=== PATIENT | female | born 2000 | race Caucasian/White ===

== ENCOUNTER 2020-11-24 17:22 | Emergency (ER) | payer OTHER ==
[~2020-11-24] VITALS: Ht 154.9 cm; Wt 74.8 kg
[~2020-11-24 17:22] MED LIST: AMPICILLIN500 MG PO; ANUSOL HC30 GM PO; BACTRIM DS 8001 TA1 PO; CLARITIN-D 12 H1 TAB PO; FLONASE ALLERG9.9 ML NAS; LATU20TA PO; MIRALAX POWDER17 G1 PO; MOTRIN400 MG PO; NKHM PO; PREDNISONE10 MG PO; PYRIDIUM200 M1 PO
[2020-11-24 17:30] VITALS: BP 143/81
[2020-11-24 18:11] LABS: BASO % 0.1 % (0.0-1.0); EOS # 0.1 10*3/uL (0.0-0.4); EOS % 0.6 % (1.0-4.0); HEMATOCRIT 38.9 % (37.0-47.0); LYMPH # 1.4 10*3/uL (1.3-4.4); LYMPH % 14.7 % (27.0-41.0); MEAN CELL VOLUME 84.9 fl (81.0-99.0); MEAN CORPUSCULAR HGB 27.7 pg (27.0-31.0); MEAN CORPUSCULAR HGB CONC 32.6 g/dl (33.0-37.0); MEAN PLATELET VOLUME 9.5 fl (9.6-12.3); MONO # 0.5 10*3/uL (0.1-1.0); NEUT # 7.6 10*3/uL (2.3-7.9); NEUT % 79.3 % (47.0-73.0); PLATELET COUNT AUTOMATED 347 10*3/uL (130-400); RED BLOOD COUNT 4.58 10*6/uL (4.10-5.10); WHITE BLOOD COUNT 9.6 10*3/uL (4.8-10.8)
[2020-11-24 18:29] LABS: ALBUMIN 3.6 gm/dl (3.1-4.5); ALKALINE PHOSPHATASE 86 U/L (45-117); BUN 10 mg/dl (7-24); CHLORIDE 107 mmol/L (98-107); CREATININE 0.66 mg/dL (0.55-1.02); POTASSIUM 3.5 mmol/L (3.5-5.1); SGOT/AST 17 IU/L (3-35); SGPT/ALT 50 U/L (12-78); SODIUM 136 mmol/L (136-145)
[2020-11-24 19:08] LABS: BILIRUBIN Negative (Negative); BLOOD 1+ (Negative); CLARITY Clear (Clear); COLOR Yellow (Yellow); GLUCOSE Negative (Negative); KETONE Negative (Negative); LEUKO ESTERASE 1+ (Negative); NITRITE Negative (Negative); SPECIFIC GRAVITY 1.015 (1.001-1.030)
== END 2020-11-24 19:34 | disposition home or self-care (01) ==
LOC: ED 17:22
PROVIDERS: Emergency Medicine
DX: O20.9 Hemorrhage in early pregnancy, unspecified (principal); Z3A.01 Less than 8 weeks gestation of pregnancy; Z88.0 Allergy status to penicillin; Z79.899 Other long term (current) drug therapy; Z79.2 Long term (current) use of antibiotics

== ENCOUNTER 2022-11-18 12:48 | Emergency (ER) | payer OTHER ==
[~2022-11-18] VITALS: Ht 154.9 cm; Wt 68.0 kg
[2022-11-18 13:04] VITALS: BP 119/72
[2022-11-18] MEDS ORDERED: MELOXICAM15 MG PO (14:27)
== END 2022-11-18 15:20 | disposition home or self-care (01) ==
LOC: ED 12:48
DX: S93.402A Sprain of unspecified ligament of left ankle, initial encounter (principal); Z88.0 Allergy status to penicillin; Z98.890 Other specified postprocedural states; X50.1XXA Overexertion from prolonged static or awkward postures, initial encounter; Y93.01 Activity, walking, marching and hiking; Y92.89 Other specified places as the place of occurrence of the external cause; Y99.8 Other external cause status

== ENCOUNTER 2023-05-04 15:06 | Emergency (ER) | payer MEDICAID ==
[~2023-05-04] VITALS: Ht 154.9 cm; Wt 54.4 kg
[~2023-05-04 15:06] MED LIST changes: +MELOXICAM15 MG PO
[2023-05-04 16:38] VITALS: BP 123/79
[2023-05-04 17:05] LABS: BASO % 0.2 % (0.0-1.0); EOS # 0.1 10*3/uL (0.0-0.4); EOS % 0.7 % (1.0-4.0); HEMATOCRIT 41.6 % (37.0-47.0); LYMPH # 1.3 10*3/uL (1.3-4.4); LYMPH % 16.1 % (27.0-41.0); MEAN CORPUSCULAR HGB 29.8 pg (27.0-31.0); MEAN CORPUSCULAR HGB CONC 32.7 g/dl (33.0-37.0); MEAN PLATELET VOLUME 9.5 fl (9.6-12.3); MONO # 0.4 10*3/uL (0.1-1.0); MONO % 5.3 % (3.0-9.0); NEUT # 6.3 10*3/uL (2.3-7.9); NEUT % 77.5 % (47.0-73.0); PLATELET COUNT AUTOMATED 267 10*3/uL (130-400); RED BLOOD COUNT 4.57 10*6/uL (4.10-5.10); RED CELL DISTRI WIDTH 13.2 % (0-14.5); WHITE BLOOD COUNT 8.2 10*3/uL (4.8-10.8)
[2023-05-04 17:21] LABS: BASO % 0.3 % (0.0-1.0); EOS # 0.1 10*3/uL (0.0-0.4); LYMPH # 1.2 10*3/uL (1.3-4.4); LYMPH % 16.9 % (27.0-41.0); MEAN CORPUSCULAR HGB 29.8 pg (27.0-31.0); MEAN PLATELET VOLUME 10.4 fl (9.6-12.3); MONO # 0.4 10*3/uL (0.1-1.0); MONO % 5.5 % (3.0-9.0); NEUT # 5.4 10*3/uL (2.3-7.9); NEUT % 76.2 % (47.0-73.0); PLATELET COUNT AUTOMATED 322 10*3/uL (130-400); RED BLOOD COUNT 4.73 10*6/uL (4.10-5.10); RED CELL DISTRI WIDTH 13.3 % (0-14.5); WHITE BLOOD COUNT 7.1 10*3/uL (4.8-10.8)
[2023-05-04 17:27] LABS: ALKALINE PHOSPHATASE 81 U/L (46-116); BUN 8 mg/dl (9-23); CHLORIDE 103 mmol/L (98-107); LIPASE 29 U/L (12-53); POTASSIUM 3.7 mmol/L (3.4-5.1); SGPT/ALT 22 U/L (5-49); TOTAL PROTEIN 7.6 gm/dL (6.0-8.0)
[2023-05-04 17:37] LABS: ALKALINE PHOSPHATASE 84 U/L (46-116); BUN 10 mg/dl (9-23); CHLORIDE 103 mmol/L (98-107); POTASSIUM 4.2 mmol/L (3.4-5.1); SGPT/ALT 23 U/L (5-49); TOTAL PROTEIN 8.2 gm/dL (6.0-8.0)
[2023-05-04 19:37] LABS: BILIRUBIN Negative (Negative); BLOOD Negative (Negative); CLARITY Cloudy (Clear); COLOR Yellow (Yellow); GLUCOSE Negative (Negative); KETONE Trace (Negative); LEUKO ESTERASE 1+ (Negative); NITRITE Negative (Negative); SPECIFIC GRAVITY <= 1.005 (1.001-1.030); UROBILINOGEN 0.2 E.U./dl (0.0-1.0)
[2023-05-04 19:58] LABS: BACTERIA 2+; WBC 16-20 wbc/hpf (0-5)
[2023-05-04 20:18] LABS: B-hCG (QUALITATIVE) NEGATIVE (NEGATIVE)
[2023-05-04] MEDS ORDERED: CIPRO500 MG PO (21:19)
== END 2023-05-04 21:39 | disposition home or self-care (01) ==
LOC: ED 15:06
PROVIDERS: Family Medicine; Nurse Practitioner Family
DX: N39.0 Urinary tract infection, site not specified (principal); K59.00 Constipation, unspecified; R11.2 Nausea with vomiting, unspecified; Z88.0 Allergy status to penicillin; Z79.899 Other long term (current) drug therapy

== ENCOUNTER 2023-10-02 21:09 | Emergency (ER) | payer MEDICAID ==
[~2023-10-02] VITALS: Ht 154.9 cm; Wt 61.2 kg
[~2023-10-02 21:09] MED LIST changes: +CIPRO500 MG PO
[2023-10-02 21:17] VITALS: BP 130/79
[2023-10-02] MEDS ORDERED: Acetaminophen/Hydrocodone 5 MG/325 MG TABLET PO ONE (21:55)
[2023-10-02] MEDS ORDERED: ZANAFLEX4 MG PO (23:11)
[2023-10-02] MEDS ORDERED: NAPROSYN500 MG PO (23:11)
== END 2023-10-03 00:15 | disposition home or self-care (01) ==
LOC: ED 21:09
DX: S63.502A Unspecified sprain of left wrist, initial encounter (principal); Z88.0 Allergy status to penicillin; X50.1XXA Overexertion from prolonged static or awkward postures, initial encounter; Y93.89 Activity, other specified; Y92.89 Other specified places as the place of occurrence of the external cause; Y99.8 Other external cause status

== ENCOUNTER 2023-12-23 17:47 | Emergency (ER) | payer MEDICAID ==
[~2023-12-23] VITALS: Ht 154.9 cm; Wt 68.0 kg
[~2023-12-23 17:47] MED LIST changes: +NAPROSYN500 MG PO; +ZANAFLEX4 MG PO
[2023-12-23 18:23] VITALS: BP 120/62
[2023-12-23] MEDS ORDERED: CEPHALEXIN500 M1 PO (19:01)
[2023-12-23] MEDS ORDERED: VIBRAMYCIN100 MG PO (19:01)
[2023-12-23] MEDS ORDERED: Doxycycline Hyclate 100 MG CAP PO ONE (19:05)
[2023-12-23] MEDS ORDERED: CEPHALEXIN 500 MG CAP PO ONE (19:05)
[2023-12-23] MEDS ORDERED: methylPREDNISolone sod succ 125 MG VIAL IM ONE (19:05)
== END 2023-12-23 19:08 | disposition home or self-care (01) ==
LOC: ED 17:47
DX: L03.116 Cellulitis of left lower limb (principal); L25.9 Unspecified contact dermatitis, unspecified cause; Z88.0 Allergy status to penicillin

== ENCOUNTER 2023-12-28 13:59 | Emergency (ER) | payer MEDICAID ==
[~2023-12-28] VITALS: Ht 154.9 cm; Wt 71.2 kg
[~2023-12-28 13:59] MED LIST changes: +CEPHALEXIN500 M1 PO; +VIBRAMYCIN100 MG PO
[2023-12-28 14:12] VITALS: BP 119/72
[2023-12-28] MEDS ORDERED: ceFAZolin sodium/sodium chlor 10 ML IV ONE (14:30)
[2023-12-28] MEDS ORDERED: Ketorolac Tromethamine 15 MG/ML VIAL IV ONE (14:35)
[2023-12-28] MEDS ORDERED: Clindamycin Phosphate 50 ML IV ONE (14:35)
[2023-12-28 14:51] LABS: BASO % 0.5 % (0.0-1.0); EOS # 0.2 10*3/uL (0.0-0.4); EOS % 3.1 % (1.0-4.0); HEMATOCRIT 41.1 % (37.0-47.0); LYMPH # 1.4 10*3/uL (1.3-4.4); MEAN CELL VOLUME 90.3 fl (81.0-99.0); MEAN CORPUSCULAR HGB 30.3 pg (27.0-31.0); MEAN CORPUSCULAR HGB CONC 33.6 g/dl (33.0-37.0); MEAN PLATELET VOLUME 9.7 fl (9.6-12.3); MONO # 0.3 10*3/uL (0.1-1.0); MONO % 5.5 % (3.0-9.0); NEUT # 4.2 10*3/uL (2.3-7.9); NEUT % 68.7 % (47.0-73.0); PLATELET COUNT AUTOMATED 268 10*3/uL (130-400); RED BLOOD COUNT 4.55 10*6/uL (4.10-5.10); RED CELL DISTRI WIDTH 12.8 % (0-14.5); WHITE BLOOD COUNT 6.1 10*3/uL (4.8-10.8)
[2023-12-28 15:13] LABS: BUN 9 mg/dl (9-23); CHLORIDE 105 mmol/L (98-107); POTASSIUM 3.8 mmol/L (3.4-5.1)
[2023-12-28] MEDS ORDERED: TRIAMCINOLONE430 GM TD (16:07)
[2023-12-28] MEDS ORDERED: PREDNISONE20 M1 PO (16:07)
== END 2023-12-28 15:55 | disposition home or self-care (01) ==
LOC: ED 13:59
PROVIDERS: Emergency Medicine
DX: L03.116 Cellulitis of left lower limb (principal); Z88.0 Allergy status to penicillin

== ENCOUNTER 2025-04-02 16:16 | Emergency (ER) | payer OTHER ==
[~2025-04-02] VITALS: Ht 154.9 cm; Wt 72.1 kg
[~2025-04-02 16:16] MED LIST changes: +PREDNISONE20 M1 PO; +TRIAMCINOLONE430 GM TD
[2025-04-02] MEDS ORDERED: SODIUM CHLORIDE 0.9% 1,000 ML IV ONE (16:50)
[2025-04-02 17:53] LABS: BASO # 0.0 10*3/uL (0.0-0.1); BASO % 0.2 % (0.0-1.0); EOS # 0.1 10*3/uL (0.0-0.4); EOS % 0.6 % (1.0-4.0); MEAN CELL VOLUME 90.5 fl (81.0-99.0); MEAN CORPUSCULAR HGB 30.2 pg (27.0-31.0); MEAN PLATELET VOLUME 9.5 fl (9.6-12.3); MONO # 0.4 10*3/uL (0.1-1.0); MONO % 4.6 % (3.0-9.0); NEUT # 6.6 10*3/uL (2.3-7.9); NEUT % 82.4 % (47.0-73.0); NUCLEATED RED BLOOD CELL 0.0 % (0.0-0.0); NUCLEATED RED BLOOD CELL 0.0 10*3/uL (0.0-0.0); PLATELET COUNT AUTOMATED 263 10*3/uL (130-400); RED CELL DISTRI WIDTH 12.5 % (0-14.5)
[2025-04-02 17:53] LABS: BILIRUBIN Negative (Negative); BLOOD Negative (Negative); CLARITY Clear (Clear); COLOR Yellow (Yellow); KETONE Negative (Negative); LEUKO ESTERASE Trace (Negative); NITRITE Negative (Negative); PH 5.5 (4.5-8.0); SPECIFIC GRAVITY 1.010 (1.001-1.030); UROBILINOGEN 0.2 E.U./dl (0.0-1.0)
[2025-04-02 18:00] LABS: BACTERIA TRACE
[2025-04-02 18:09] LABS: BUN 10 mg/dl (9-23)
[2025-04-02 18:10] LABS: BETA-HCG, QUANT < 3.0 mIU/mL (3-10)
== END 2025-04-02 19:51 | disposition home or self-care (01) ==
LOC: ED 16:16
PROVIDERS: Nurse Practitioner Family
DX: R10.20 Pelvic and perineal pain unspecified side (principal); R30.9 Painful micturition, unspecified; E86.0 Dehydration; Z88.0 Allergy status to penicillin